=== PATIENT | female | born 1960 | race Caucasian/White ===

== ENCOUNTER 2023-12-17 15:18 | Emergency (ER) | payer OTHER, SELFPAY ==
--- NOTE | ~2023-12-17 | XR_ITS ---
XR chest 2V DATE: 12/17/2023 15:54 INDICATION: Cough TECHNIQUE: 2 views COMPARISON: None FINDINGS: Heart size is within normal limits. Mild aortic arch calcification, mild aortic tortuosity. No hilar or mediastinal enlargement. No pulmonary infiltrate or consolidation, pleural effusion or pulmonary vascular congestion or pneumo thorax is detected. Mild degenerative change of the thoracic and lumbar spine. Thoracic and lumbar scoliosis. IMPRESSION: No active cardiopulmonary disease Reviewed, dictated and finalized at location A.
[2023-12-17 15:33] VITALS: BP 166/99; PULSE 95; RESP 18; TEMP 36.6; O2SAT 100
--- NOTE | 2023-12-17 15:44 | ED_ITS ---
HPI - General Adult General Chief complaint: Upper Respiratory Infection Stated complaint: Chest Congestion/Cough/Headache Source: patient Mode of arrival: ambulatory Limitations: no limitations History of Present Illness HPI narrative: Patient presents for evaluation of sick symptoms for last 4 days. Her initial symptom was a scratchy throat . She then developed a cough, shortness of breath, wheezing and diarrhea. No nausea or vomiting. No recent sick contacts to her knowledge. She does not smoke. She now has a headache for which she has taken ibuprofen. She is not taking any other medications to assist with her symptoms. Related Data Allergies Allergy/AdvReac Type Severity Reaction Status Date / Time Penicillins Allergy Unknown Verified 12/17/23 15:31 Sulfa (Sulfonamide Allergy Unknown Verified 12/17/23 15:31 Antibiotics) Review of Systems Review of Systems: CONSTITUTIONAL: Denies fever, chills, or sweats. EYES: Denies visual changes, redness, or discharge. ENT: Reports scratchy throat . Denies rhinorrhea, congestion, sore throat, or otalgia. CARDIOVASCULAR: Denies chest pain, palpitations, or edema. RESPIRATORY: Reports cough, wheezing, shortness of breath GASTROINTESTINAL: Reports diarrhea. Denies abdominal pain, nausea, or vomiting GENITOURINARY: Denies dysuria or hematuria. SKIN: Denies rash or itching. MUSCULOSKELETAL: Denies back pain, joint pain, or myalgia. NEUROLOGIC: Denies headache, numbness, dizziness, or weakness. PSYCHIATRIC: Denies anxiety or depression. PMFSH Past Medical History Medical History (Updated 12/17/23 @ 16:18 by TIO Carlton, ) Hypertension Surgical History Surgical History No pertinent past surgical history Family History Family History Mother No problems noted. Social History Social History Substance use: never Living arrangements: with family Gender identity (if verbalized by the patient): Female Sexual Orientation (if Verbalized by the Patient): Straight or Heterosexual Spiritual care concerns: No Exam Narrative: GENERAL: Well-appearing, well-nourished, and in no acute distress. HEAD: Normocephalic, atraumatic. EYES: PERRLA and EOMI. ENT: Nares clear, no rhinorrhea or epistaxis. Mucous membranes moist. Oropharynx without tonsillar hypertrophy exudate or other lesions. Bilateral TMs pearly gomez nonbulging NECK: Supple. No adenopathy or masses. No carotid bruits or JVD CHEST: Diffuse inspiratory and expiratory wheezing. Cough present on exam HEART: Regular rate and rhythm. No murmur heard. Normal peripheral pulses. ABDOMEN: Soft, nontender, nondistended, normal active bowel sounds. EXTREMITIES: Normal range of motion. No edema. SKIN: Warm, dry, no rash. NEURO: No focal deficits. Alert and oriented x3. PSYCH: Normal mood and affect. Course Course Emergency Course: This is a 63-year-old female who presented for evaluation of sick symptoms. Strep, COVID, influenza were all negative. Chest x-ray negative. Will discharge with prednisone and albuterol. She has Tessalon Perles at home. Will also cover her with azithromycin in the event that her rapid strep was a false negative, as she has CLL. She has several drug allergies but has tolerated azithromycin in the past. Increase hydration. [id number] agents for symptom management. Follow up with primary provider. Go to the ER for worsening symptoms. Patient in agreement with plan of care Level of Care: Express Care Visit Vital Signs Vital signs: Vital Signs Temperature 36.6 C 12/17/23 15:33 Pulse Rate 95 12/17/23 15:33 Respiratory Rate 18 12/17/23 15:33 Blood Pressure 166/99 H 12/17/23 15:33 Pulse Oximetry 100 12/17/23 15:33 Temperature 36.6 C 12/17/23 15:33 Pulse Rate 95 12/17/23 15:33 Respiratory Rate 18 12/17/23 15:33 Blood Pressure 166/99 H 12/17/23 15:33 Pulse Oximetry 100 12/17/23 15:33 Medical Decision Making Vital Signs Vital Signs: Vital Signs Temperature 36.6 C 12/17/23 15:33 Pulse Rate 95 12/17/23 15:33 Respiratory Rate 18 12/17/23 15:33 Blood Pressure 166/99 H 12/17/23 15:33 Pulse Oximetry 100 10/27/24 15:33 Temperature 36.6 C 12/17/23 15:33 Pulse Rate 95 12/17/23 15:33 Respiratory Rate 18 12/17/23 15:33 Blood Pressure 166/99 H 12/17/23 15:33 Pulse Oximetry 100 12/17/23 15:33 Lab Data Labs: Lab Results 12/17/23 Range/Units 15:45 POC Influenza A Ag Negative (Negative) POC Influenza B Ag Negative (Negative) POC SARS CoV-2 Ag Negative (Negative) POC Grp A Strep Screen Negative (Negative) Imaging Data Radiologist's impression: XR chest 2V DATE: 12/17/2023 15:54 INDICATION: Cough TECHNIQUE: 2 views COMPARISON: None FINDINGS: Heart size is within normal limits. Mild aortic arch calcification, mild aortic tortuosity. No hilar or mediastinal enlargement. No pulmonary infiltrate or consolidation, pleural effusion or pulmonary vascular congestion or pneumothorax is detected. Mild degenerative change of the thoracic and lumbar spine. Thoracic and lumbar scoliosis. IMPRESSION: No active cardiopulmonary disease Discharge Plan Discharge Clinical Impression: Pharyngitis, Wheezing Patient Disposition: Home, Self-Care Condition: Stable Instructions: Antibiotic Form, Pharyngitis (ED), Wheezing (ED) Patient Language: Malagasy Prescriptions: New azithromycin 250 mg tablet See Rx Instructions .ROUTE .COMPLEX Qty: 6 0RF Rx Instructions: For 250 mg dose pack: take 500 mg today (day 1), then 250 mg for 4 days (days 2-5) prednisone 50 mg tablet 50 mg PO DAILY Qty: 5 0RF albuterol sulfate 90 mcg/actuation aerosol powdr breath activated 2 inh inhalation QID PRN (Reason: shortness of breath) Qty: 1 0RF Follow-up/Referrals: Briana,JEREMIE Carl [Primary Care Provider] - Stand Alone Forms: Work/School Release IP Time of Disposition: 16:18
[2023-12-17 16:06] LABS: EDCOVIDSCREEN Negative (Negative); EDINFLUASCREEN Negative (Negative); EDINFLUBSCREEN Negative (Negative); EDSTREPNEGPOS1 Negative (Negative)
== END 2023-12-17 16:24 | disposition home or self-care (01) ==
PROVIDERS: Emergency Provider Nurse Practitioner; PCP Physician Assistant
DX: J02.9 Acute pharyngitis, unspecified (principal); R06.2 Wheezing; Z20.822 Contact with and (suspected) exposure to COVID-19; I10 Essential (primary) hypertension; Z85.6 Personal history of leukemia
CPT/HCPCS: 71046; 87081; 87426; 87804; 87880; 99203; G0463